=== PATIENT | female | born 1955 | race Caucasian/White ===

== ENCOUNTER 2022-05-08 06:22 | Emergency (ER) | payer MEDICARE, OTHER ==
[2022-05-08 06:32] VITALS: TEMP 99
[2022-05-08] MEDS ORDERED: SODIUM CHLORIDE 0.9% 500 ML 500 ML IV STA (06:58)
[2022-05-08] MEDS ORDERED: SODIUM CHLORIDE 0.9% 1,000 ML IV STA (06:58)
[2022-05-08] MEDS ORDERED: HYDROmorphone 0.5 MG/0.5 ML SYRINGE IVP STA ×2 (06:58→08:56)
[2022-05-08] MEDS ORDERED: ONDANSETRON 4 MG/2 ML VIAL IVP STA (06:58)
--- NOTE | 2022-05-08 07:20 | ED ---
Abdominal Pain HPI - General Chief Complaint: Abdominal Pain Stated Complaint: Abdominal Pain Time Seen by Provider: 05/08/22 06:25 Source: patient, EMS, RN notes reviewed Mode of arrival: EMS Limitations: no limitations - History of Present Illness Initial Comments: This a 66-year-old female presents emergency department via EMS chief complaint of abdominal pain, right arm pain. Patient states she's dealing with this pain for last 2 days it's worse when she eats certain foods. Patient states her right upper quadrant essentially nonradiating. Patient does admit to some nausea and one episode of vomiting. Patient denies any significant diarrhea constipation dysuria hematuria. She states when EMS came She tripped over a dog leash causing her to fall onto her right arm. 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 Patient denies any head injury no loss conscious. Patient does complain of right arm pain patient does not she is taking the [facility] hospital yesterday states the wait was too long so she left. She has a reported fever as much takes Lipitor - Related Data Previous Rx's Medication Instructions Recorded Omeprazole [PriLOSEC] 40 mg PO DAILY #14 cap 05/08/22 Allergies Allergy/AdvReac Type Severity Reaction Status Date / Time cyclobenzaprine Allergy Unknown Verified 05/08/22 06:25 [From Flexeril] ketamine Allergy Unknown Verified 05/08/22 06:25 Review of Systems ROS Statement: Those systems with pertinent positive or pertinent negative responses have been documented in the HPI. ROS Other: All systems not noted in ROS Statement are negative. Past Medical History Past Medical History: Asthma, COPD, GERD/Reflux, Hyperlipidemia History of Any Multi-Drug Resistant Organisms: None Reported, MRSA Date of last positivie culture/infection: 2017 MDRO Source:: hip Past Surgical History: Hysterectomy, Orthopedic Surgery, Tubal Ligation Past Psychological History: No Psychological Hx Reported Smoking Status: Current some day smoker Past Alcohol Use History: Rare Past Drug Use History: None Reported General Exam Limitations: no limitations General appearance: alert, in no apparent distress Head exam: Present: atraumatic, normocephalic, normal inspection Eye exam: Present: normal appearance, PERRL, EOMI. Absent: scleral icterus, conjunctival injection, periorbital swelling ENT exam: Present: normal exam, normal oropharynx, mucous membranes moist Neck exam: Present: normal inspection, full ROM. Absent: tenderness, meningismus, lymphadenopathy Respiratory exam: Present: normal lung sounds bilaterally. Absent: respiratory distress, wheezes, rales, rhonchi, stridor Cardiovascular Exam: Present: regular rate, normal rhythm, normal heart sounds. Absent: systolic murmur, diastolic murmur, rubs, gallop, clicks GI/Abdominal exam: Present: soft, tenderness, normal bowel sounds. Absent: distended, guarding, rebound, rigid Extremities exam: Present: other (Right humerus tenderness diffusely) Neurological exam: Present: alert Skin exam: Present: warm, dry, intact, normal color. Absent: rash Course Vital Signs 05/08/22 05/08/22 06:26 09:03 Temperature 99.0 F Pulse Rate 109 H 107 H Respiratory 22 18 Rate Blood Pressure 139/85 124/85 O2 Sat by Pulse 95 92 L Oximetry Medical Decision Making - Medical Decision Making 66-year-old female presented for epigastric right upper quadrant abdominal pain there is no acute findings on CT patient did have a fall prior comment arrival in which she has a fracture of her humerus from her prosthesis. She was placed in a sling and advised that she is to follow-up with her orthopedic surgeon. - Lab Data Result diagrams: 05/08/22 07:09 05/08/22 07:09 Lab Results 05/08/22 05/08/22 05/08/22 Range/Units 07:09 07:09 07:09 WBC 8.2 (3.8-10.6) k/uL RBC 4.03 (3.80-5.40) m/uL Hgb 12.4 (11.4-16.0) gm/dL Hct 38.3 (34.0-46.0) % MCV 95.0 (80.0-100.0) fL MCH 30.8 (25.0-35.0) pg MCHC 32.4 (31.0-37.0) g/dL RDW 15.6 H (11.5-15.5) % Plt Count 289 (150-450) k/uL MPV 7.1 Neutrophils % 66 % Lymphocytes % 25 % Monocytes % 6 % Eosinophils % 1 % Basophils % 0 % Neutrophils # 5.4 (1.3-7.7) k/uL Lymphocytes # 2.0 (1.0-4.8) k/uL Monocytes # 0.5 (0-1.0) k/uL Eosinophils # 0.1 (0-0.7) k/uL Basophils # 0.0 (0-0.2) k/uL Sodium 135 L (137-145) mmol/L Potassium 4.2 (3.5-5.1) mmol/L Chloride 102 (98-107) mmol/L Carbon Dioxide 22 (22-30) mmol/L Anion Gap 11 mmol/L BUN 18 H (7-17) mg/dL Creatinine 0.59 (0.52-1.04) mg/dL Est GFR (CKD-EPI)AfAm >90 (>60 ml/min/1.73 sqM) Est GFR (CKD-EPI)NonAf >90 (>60 ml/min/1.73 sqM) Glucose 99 (74-99) mg/dL Plasma Lactic Acid Yves 1.4 (0.7-2.0) mmol/L Calcium 8.2 L (8.4-10.2) mg/dL Total Bilirubin 0.4 (0.2-1.3) mg/dL AST 28 (14-36) U/L ALT 17 (4-34) U/L Alkaline Phosphatase 75 (38-126) U/L Total Protein 6.2 L (6.3-8.2) g/dL Albumin 4.2 (3.5-5.0) g/dL Amylase 48 (30-110) U/L Lipase 77 (23-300) U/L Disposition Clinical Impression: Fall, Abdominal pain, Closed fracture of right proximal humerus Disposition: HOME SELF-CARE Condition: Stable Instructions (If sedation given, give patient instructions): Abdominal Pain (ED) Additional Instructions: Please follow-up with your orthopedic surgeon as directed.Please return to the Emergency Department if symptoms worsen or any other concerns. Prescriptions: Omeprazole [PriLOSEC] 40 mg PO DAILY #14 cap Is patient prescribed a controlled substance at d/c from ED?: No Referrals: Raymond Jean Baptiste MD [Primary Care Provider] - 1-2 days Time of Disposition: 09:36
[2022-05-08 07:36] LABS: Basophils % (A) 0 %; Eosinophils # (A) 0.1 k/uL (0-0.7); Eosinophils % (A) 1 %; HCT 38.3 % (34.0-46.0); HGB 12.4 gm/dL (11.4-16.0); Lymphocytes % (A) 25 %; MCH 30.8 pg (25.0-35.0); MCHC 32.4 g/dL (31.0-37.0); Mean Platelet Volume 7.1; Monocytes # (A) 0.5 k/uL (0-1.0); Monocytes % (A) 6 %; Neutrophils # (A) 5.4 k/uL (1.3-7.7); Neutrophils % (A) 66 %; Platelet Count 289 k/uL (150-450); RBC 4.03 m/uL (3.80-5.40); RDW 15.6 % (11.5-15.5); WBC 8.2 k/uL (3.8-10.6)
[2022-05-08 07:48] LABS: ALT 17 U/L (4-34); AST 28 U/L (14-36); Albumin 4.2 g/dL (3.5-5.0); Alkaline Phosphatase 75 U/L (38-126); Anion Gap 11 mmol/L; Calcium 8.2 mg/dL (8.4-10.2); Carbon Dioxide 22 mmol/L (22-30); Chloride 102 mmol/L (98-107); Lipase 77 U/L (23-300); Potassium 4.2 mmol/L (3.5-5.1); Sodium 135 mmol/L (137-145); Total Bilirubin 0.4 mg/dL (0.2-1.3); Total Protein 6.2 g/dL (6.3-8.2)
[2022-05-08 07:49] LABS: African American GFR (CKD) >90 (>60 ml/min/1.73 sqM); Amylase 48 U/L (30-110); Blood Urea Nitrogen 18 mg/dL (7-17); Glucose 99 mg/dL (74-99); Non-African American GFR(CKD) >90 (>60 ml/min/1.73 sqM)
--- NOTE | 2022-05-08 07:59 | XR ---
EXAMINATION TYPE: XR humerus RT DATE OF EXAM: 05/08/2022 CLINICAL HISTORY: Fall injury with pain TECHNIQUE: Two views of the right humerus are obtained. COMPARISON: None. FINDINGS: Metallic prosthesis from reverse right shoulder arthroplasties present. There is a slightly displaced acute oblique fracture through the distal level of the stem prosthesis roughly proximal to mid shaft level of the right humerus. [place] osseous structures are demineralized. Overlying soft ti ssue shows blanket or clothing material. IMPRESSION: As above.
--- NOTE | 2022-05-08 08:16 | US ---
EXAMINATION TYPE: US gallbladder DATE OF EXAM: 05/08/2022 COMPARISON: NONE CLINICAL HISTORY: pain. Abdomen pain TECHNIQUE: Multiple sonographic images of the right upper quadrant are obtained. FINDINGS: EXAM MEASUREMENTS: Liver Length: 15.2 cm Gallbladder Wall: 0.2 cm CBD: 0.4 cm Right Kidney: 11.5 x 4.8 x 4.2 cm [employer]IOR [employer] NOTES:Difficult and limited study due to patient body habitus and patient unable to roll and she kept her right arm in a sling close to her body and covering her RUQ due to recent arm injury Pancreas: duct seen measuring 0.3cm, limited by overlying midline bowel gas Liver: visualized portions appear wnl Gallbladder: only partially seen due to limitations listed above and overlying bowel gas, visualized portions appear wnl Evidence for sonographic Issa's sign: no CBD: visualized portions wnl, limited by overlying bowel gas Right Kidney: wnl Visualized pancreas appears within normal limits. Visualized liver grossly unremarkable. No adjacent ascites. No right-sided hydronephrosis. Gallbladder not greatly seen without shadowing mobile gallsto gilda. No obvious biliary dilatation. IMPRESSION: Suboptimal study without acute finding evident.
[2022-05-08] MEDS ORDERED: KETOROLAC 15 MG/ML 1 ML VIAL IVP STA (08:56)
[2022-05-08 09:03] VITALS: RESP 18
--- NOTE | 2022-05-08 09:05 | CT ---
EXAMINATION TYPE: CT abdomen pelvis w con DATE OF EXAM: 05/08/2022 HISTORY: Abdominal pain CT DLP: 1307.4mGycm Automated Exposure Control for Dose Reduction was Utilized. CONTRAST: CT scan of the abdomen and pelvis is performed without oral and with IV Contrast, patient injected wi th 100 mL of Isovue 300. COMPARISON: None. FINDINGS: LUNG BASES: Mild to moderate bibasilar linear scarring and/or atelectasis. LIVER/GB: Incidental 1.1 cm benign-appearing thin-walled cyst axial image 22. Visualized liver hetero geneously hypodense suggesting possible fatty infiltration. No biliary dilatation. PANCREAS: No significant abnormality is seen. SPLEEN: No significant abnormality is seen. ADRENALS: No significant abnormality is seen. KIDNEYS: No significant abnormality is seen. BOWEL: Small size hiatal hernia. Suboptimal evaluation without enteric contrast. Stomach poorly diste nded and thus suboptimally evaluated. No suspicious small or large bowel dilatation. Slightly low-lyi ng cecum into the right pelvis anteriorly UTERUS/ADNEXA: Uterus surgically absent or markedly atrophic LYMPH NODES: No greater than 1cm abdominal or pelvic lymph nodes are appreciated. OSSEOUS STRUCTURES: Metallic artifact from left hip arthroplasty causes streak artifact limiting eval uation of pelvic structures. OTHER: No significant additional abnormality is seen. IMPRESSION: No significant acute finding is seen to account for patient's clinical symptoms.
[2022-05-08] MEDS ORDERED: HYDROcodone/APAP 5-325MG 1 EACH TAB PO STA (09:36)
[2022-05-08] MEDS ORDERED: ACET/COD 300 MG/30 MG STARTER PACK 6 TAB BTL PO STA (09:36)
[2022-05-08 10:23] VITALS: BP 101/82; PULSE 78
== END 2022-05-08 10:25 | disposition home or self-care (01) ==
LOC: EC 06:22
DX: S42.291A Other displaced fracture of upper end of right humerus, initial encounter for closed fracture (principal); R10.11 Right upper quadrant pain; F17.200 Nicotine dependence, unspecified, uncomplicated; J44.9 Chronic obstructive pulmonary disease, unspecified; Z88.4 Allergy status to anesthetic agent; Z88.8 Allergy status to other drugs, medicaments and biological substances; Z87.19 Personal history of other diseases of the digestive system; W01.0XXA Fall on same level from slipping, tripping and stumbling without subsequent striking against object, initial encounter
CPT/HCPCS: 36415; 80053; 82150; 83605; 83690; 85025; 73060; 76705; 74177; 96374; 96375; 96361; 96376; 99285; J2405; J1885; J1170; Q9967